=== PATIENT | female | born 1980 | race Caucasian/White ===

== ENCOUNTER 2017-03-28 06:17 | Emergency (ER) | payer SELFPAY ==
[~2017-03-28] VITALS: Ht 157.5 cm; Wt 55.0 kg
[2017-03-28 06:18] VITALS: BP 109/74; PULSE 91; RESP 16; TEMP 98.2; O2SAT 99
--- NOTE | 2017-03-28 06:45 | PD ---
HPI Chief Complaint: Skin Problem Time Seen by Provider: 06:40 Travel History International Travel<30 days: No Contact w/Intl Traveler<30days: No Traveled to known affect area: No History of Present Illness HPI Patient comes in complaining of possible abscess to her left posterior thigh and a few days ago. Patient states that she's been applying warm compresses and Neosporin. Patient states that she popped it and was able to get some pus out of it. Patient having pain around site is worse palpation. Denies any radiation pain. Describes pain as a burning pain. Denies anything making it better. Denies any fevers, nausea, vomiting, , chest pain, shortness breath, or chills. 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 Reported Meds & Prescriptions Reported Meds & Active Scripts Active Keflex (Cephalexin) 500 Mg Cap 500 Mg PO Q8H Bactrim DS (Sulfamethoxazole-Trimethoprim) 800-160 Mg Tab 1 Tab PO BID Review of Systems Except as stated in HPI: all other systems reviewed are Neg Physical Exam Narrative GENERAL: Well-developed, well nourished, in no acute distress, and non-ill appearing. SKIN: Area of induration over the left posterior thigh with small lesion is partially scabbed over from work patient reports getting drainage. It is mildly febrile, tender, there is no fluctuation or crepitus. HEAD: Atraumatic. Normocephalic. EYES: Pupils equal and round. EOMI. No scleral icterus. No injection or drainage. ENT: No nasal bleeding or discharge. Mucous membranes pink and moist. NECK: Trachea midline. Supple. No nuclear rigidity. RESPIRATORY: No accessory muscle use. No respiratory distress. MUSCULOSKELETAL: No obvious deformities. No clubbing. No cyanosis. No edema. Full range of motion. NEUROLOGICAL: Awake and alert. No obvious cranial nerve deficits. Motor grossly within normal limits. Normal speech. PSYCHIATRIC: Appropriate mood and affect; insight and judgment normal. Data Data Last Documented VS Vital Signs Date Time Temp Pulse Resp B/P Pulse Ox O2 Delivery O2 Flow Rate FiO2 03/28/17 06:18 98.2 91 16 109/74 99 Room Air Orders Wound Culture And Gram Stain (03/28/17 06:39) MDM Medical Decision Making Medical Screen Exam Complete: Yes Emergency Medical Condition: Yes Differential Diagnosis Abscess, cellulitis, folliculitis, gangrene, other Narrative Course The patient has no evidence of obvious abscess at this time. The patient will be discharged on antibiotics for cellulitis with possible early/immature abscess. Clinical suspicion, diagnosis and care management was discussed. The patient was given signs and symptoms warnings for worsening infection, such as spreading of redness, increasing pain, and/or swelling, associated heat, pus or fever and instructed to return immediately if these signs or symptoms worsen. The patient is to return in 2 days for recheck for maturity. Sooner if worsens or as needed. The patient agrees with plan. Patient in no obvious distress upon re-evaluation. Patient was asked if they wanted to speak to my attending, which the patient did not wish to do at this time. Any questions/concerns in reference to patient diagnosis/condition discussed and clarified prior to patient's discharge. Reinforced sheer importance of close follow up with patient's primary physician or primary care clinic. Instructed patient to return to ED immediately, if symptoms return/ worsen. Pt showed understanding of above instructions. Further instructions and recommendations were detailed in discharge paperwork. Pt ambulated without difficulty out of ED at discharge. Diagnosis Primary Impression: Cellulitis Qualified Code: L03.116 - Cellulitis of left lower extremity Referrals: [facility] Patient Instructions: Abscess (GEN), Cellulitis (ED), General Instructions Additional Instructions: Follow-up with your primary care physician or return here in 2 days for recheck. Take all medication as prescribed. Continue applying warm compresses to affected area multiple times a day to promote maturity. Keep wound dry and clean as possible using soap and water. Return to the emergency department if symptoms get worse. Med/Other Pt SpecificInfo: Prescription(s) given Scripts Cephalexin (Keflex)500 Mg Qpq781 Mg PO Q8H #30 CAP Ref 0 Prov:Obinna Jacobsen MD 03/28/17 Sulfamethoxazole-Trimethoprim (Bactrim DS)800-160 Mg Tab1 Tab PO BID #20 TAB Ref 0 Prov:Obinna Jacobsen MD 03/28/17 Disposition: 01 DISCHARGE HOME Condition: Stable Cesario Rollins Mar 28, 2017 06:45
[2017-03-28] MEDS ORDERED: BACT800T5 PO (06:46)
[2017-03-28] MEDS ORDERED: CEPH-460 PO (06:46)
== END 2017-03-28 06:51 | disposition home or self-care (01) ==
LOC: NEPD 06:17
DX: L03.116 Cellulitis of left lower limb (principal); B95.62 Methicillin resistant Staphylococcus aureus infection as the cause of diseases classified elsewhere; Z79.899 Other long term (current) drug therapy; Z72.0 Tobacco use
CPT/HCPCS: 86403; 87070; 87186; 99284

== ENCOUNTER 2017-06-05 01:16 | Emergency (ER) | payer SELFPAY ==
[~2017-06-05] VITALS: Ht 157.5 cm; Wt 50.0 kg
[~2017-06-05 01:16] MED LIST: BACT800T5 PO; CEPH-460 PO
[2017-06-05 01:17] VITALS: BP 122/78; PULSE 100; RESP 16; TEMP 96.7; O2SAT 98
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
[2017-06-05] MEDS ORDERED: HYDR-3533 PO (04:39)
[2017-06-05] MEDS ORDERED: AMOX500T PO (04:39)
[2017-06-05] MEDS ORDERED: ERYTOIN10 RIGHT EYE (04:39)
[2017-06-05] MEDS ORDERED: TETANUS/DIPHTHERIA TOXOID ADULT 0.5 ML VIAL IM ONE (04:45)
== END 2017-06-05 05:35 | disposition home or self-care (01) ==
LOC: NEPC 01:16
DX: S02.81XA Fracture of other specified skull and facial bones, right side, initial encounter for closed fracture (principal); S02.2XXA Fracture of nasal bones, initial encounter for closed fracture; S05.01XA Injury of conjunctiva and corneal abrasion without foreign body, right eye, initial encounter; H20.9 Unspecified iridocyclitis; F17.210 Nicotine dependence, cigarettes, uncomplicated; Y09 Assault by unspecified means; Z23 Encounter for immunization
CPT/HCPCS: 70450; 70486; 72125; 90714; 96372